=== PATIENT | male | born 1940 | race Caucasian/White ===

== ENCOUNTER 2017-06-20 22:03 | Emergency (ER) | payer MEDICARE ==
[~2017-06-20] VITALS: Ht 177.8 cm; Wt 117.9 kg
[~2017-06-20 22:03] MED LIST: IV NORMAL SALINE 1000 ML BAG IV ONE
[2017-06-20] MEDS ORDERED: CALCIUM CHLORIDE 1 GM/10 ML DISP.SYRIN IV ONE (22:06)
[2017-06-20] MEDS ORDERED: ATROPINE SULFATE 1 MG/10 ML DISP.SYRIN IV ONE (22:06)
[2017-06-20] MEDS ORDERED: EPINEPHRINE 1:10,000 1 MG/10 ML DISP.SYRIN MC ONE (22:06)
[2017-06-20] MEDS ORDERED: SODIUM BICARBONATE 8.4% 50 MEQ/50 ML DISP.SYRIN IV ONE (22:06)
--- NOTE | 2017-06-20 23:50 | NUR ---
PATIENT COMES IN VIA RA[facility], PATIENT WAS FOUND AT HOME , UNRESPONSIVE, AGONAL BREATHING REPORTED IN THE FIELD W/ COMBI TUBE PLACED BY EMS. PATIENT WAS BEING PACED BY EMS PER REPORT. UPON ENTRY TO THE ER, PATIENT WAS VENTILATED VIA BVM WITH NO PALPABLE PULSES. PEA IS NOTED ON SEWER PIPE PRESS OPERATOR PER ER MD. 2207 CODE BLUE IS PAGED. ER PRIMARY RN, Tamara HAMMONDS, ER MD Timothy RUIZ, BUS REPAIR SUPERVISOR SANFORD ADLER, STEPH Mccullough RN, TARA Winters RN, KARON LAWRENCE RN, EMERY CROWDER RT, BASSAM KC RT, DRYWALL TAPER MATEO Jones AT BEDSIDE THROUGHOUT THIS EVENT. PATIENT STARTED W/ COMPRESSIONS/BVM. PLACED ON PACER PADS, SEWER PIPE PRESS OPERATOR. 1ST DOSE OF EPINEPHRINE GIVEN @ 0 VIA RFA 20GA. 2ND DOSE OF EPINEPHRINE GIVEN @ 2212, 3RD DOSE OF EPINEPHRINE GIVEN @ 2216. ET TUBE PLACED @ 8, 23 AT THE LIP, SIZE: 7.5., PLACEMENT CONFIRMED BY ER MD, RT. 4TH DOSE OF EPINEPHRINE GIVEN @ 2218, 5TH DOSE OF EPINEPHRINE GIVEN @ 2221. OGTUBE PLACED @2221. PLACEMENT CONFIRMED W/ AUSCULTATION, PLACED ON CONTINUOUS SUCTION PER ER MD INSTRUCTION. 6TH DOSE OF EPINEPHRINE GIVEN @ 5, 7TH DOSE OF EPINEPHRINE GIVEN @ 2228, BICARB GIVEN @ 2230 VIA RFA 20GA IV. CALCIUM GLUCONE IVP GIVEN @ 2231 VIA RFA IV. 8TH DOSE OF EPINEPHRINE GIVEN AT 2234. PATIENT SHOWS NO CARDIAC ACTIVITY PER ER MD ASSESSMENT, TIME OF CALLED @ [address] Timothy RUIZ.
--- NOTE | 2017-06-21 00:20 | NUR ---
cONTACT INFORMATION FOR PATIENTS FIANCE FOR 15 YEARS, PERLITA CONLEY. [phone]
--- NOTE | 2017-06-21 00:37 | NUR ---
[facility] CALLED REGARDING THE PATIENT, ATTEMPTED TO TRANSFER TO [facility], PHONECALL WAS DROPPED DURING ATTEMPT AT TRANSFER.
--- NOTE | 2017-06-21 01:40 | NUR ---
Multiple attempts to contact Dr Tamara Delgado for certificate signature made. Msg left with on-call MD. No call back at this time. MD contact number: [phone]. Patient genia cofirms this MD is still the patients PCP.
--- NOTE | 2017-06-21 01:41 | NUR ---
Amanda Vergara RN, tire service supervisor provided with Record of and endorsed incomplete sections for completion.
--- NOTE | 2017-06-21 01:42 | NUR ---
Patient body placed into [facility] More by Eloy Ashton LVN and [facility] security [employer].
--- NOTE | 2017-06-21 02:15 | NUR ---
Patients body/belongings taken to [facility]
== END 2017-06-21 02:17 | disposition expired ==
LOC: ER 22:05
DX: I46.9 Cardiac arrest, cause unspecified (principal)
CPT/HCPCS: 70030-TC; A4663; J0171; J0461; J3490; J7030